=== PATIENT | male | born 1960 | race Caucasian/White ===

== ENCOUNTER 2020-12-25 12:16 | Emergency (ER) | payer MEDICAID ==
[~2020-12-25] VITALS: Ht 177.8 cm; Wt 79.4 kg
--- NOTE | 2020-12-25 12:54 | NUR ---
THE PATIENT BIBS FOR REQUESTING MEDICAL CLEARANCE FOR VOLUNTARY PSYCH ADMIT TO [facility]. DENIES SI/HI. THE PATIENT IS ALERT AND ORIENTED X2. DENIES PAIN. IN ROOM AIR AND DENIES SOB. RESPIRATION REGULAR AND UNLABORED. WILL CONTINUE TO MONITOR THE PATIENT.
[2020-12-25 12:57] LABS: BASOPHILS # (AUTO) 0.1 K/uL (0.0-0.2); BASOPHILS % (AUTO) 0.6 % (0.0-2.0); HEMATOCRIT 40 % (39-51); HEMOGLOBIN 13.4 g/dL (13.5-17.5); LYMPHOCYTES # (AUTO) 3.1 K/uL (0.8-4.8); LYMPHOCYTES % (AUTO) 20.8 % (20.0-44.0); MEAN CORPUSCULAR HGB CONC 33 g/dl (31.0-36.0); MEAN CORPUSCULAR VOLUME 90 fL (80-96); MONOCYTES # (AUTO) 1.9 K/uL (0.1-1.30); MONOCYTES % (AUTO) 12.9 % (2.0-12.0); NEUTROPHILS # (AUTO) 9.7 K/uL (1.8-8.9); NEUTROPHILS % (AUTO) 64.7 % (43.0-81.0); PLATELET COUNT (AUTO) 413 K/uL (150-450); RED BLOOD CELL COUNT(AUTO) 4.48 MIL/uL (4.5-6.0)
[2020-12-25 13:05] LABS: CALCIUM, SERUM 8.9 mg/dL (8.5-10.1); CARBON DIOXIDE 23 mmol/L (21-32); CHLORIDE 100 mmol/L (98-107); CREATININE 1.6 mg/dL (0.6-1.3); GLUCOSE 83 mg/dL (74-106); SODIUM SERUM 135 mmol/L (136-145); UREA NITROGEN, BLOOD 48 mg/dL (7-18)
[2020-12-25 13:10] LABS: ALANINE AMINOTRANSFERASE 96 U/L (12-78); ALKALINE PHOSPHATASE 74 U/L (46-116); ASPARTATE AMINOTRANSFERASE 59 U/L (15-37); BILIRUBIN,DIRECT 0.2 mg/dL (0.0-0.2); BILIRUBIN,TOTAL 0.7 mg/dL (0.2-1.0); TOTAL PROTEIN, SERUM 8.8 g/dL (6.4-8.2)
[2020-12-25 13:12] LABS: ACETAMINOPHEN 0 ug/ml (10-30); ALCOHOL, BLOOD < 3 mg/dL (0-0)
--- NOTE | 2020-12-25 13:34 | NUR ---
URINE COLLECTED AND SENT TO THE LAB
[2020-12-25 13:45] LABS: BILIRUBIN,URINE Negative (NEGATIVE); COLOR,URINE YELLOW (YELLOW); LEUKOCYTE ESTERASE ,URINE Negative (NEGATIVE); NITRITE, URINE Negative (NEGATIVE); PH,URINE 5.5 (5.0-8.0); PROTEIN,URINE Trace mg/dl (NEGATIVE); UGLUCOSE Negative (NEGATIVE); UROBILINOGEN,URINE 0.2 EU/dL (0.2)
[2020-12-25 13:46] LABS: BACTERIA,URINE Rare /HPF (None Seen); RBC,URINE 0-2 /HPF (0-2); SQUAMOUS EPITHELIAL CELL,UR Rare /HPF (None Seen); WBC,URINE 0-2 /HPF (0-3)
--- NOTE | 2020-12-25 17:00 | NUR ---
THE PATIENT HAVING DINNER. TOLERATES PROVIDED FOOD WELL.
--- NOTE | 2020-12-25 19:30 | NUR ---
RECIEVED REPORT FOR NICK, PATIENT IN BED RESTING, VSS, IN NO ACUTE DISTRESS. WILL CONTINUE TO MONITOR
--- NOTE | 2020-12-25 20:06 | NUR ---
CALLED FIORELLA AT [facility] TO INSURE SHE HAS REC'S THE INQUIRES
--- NOTE | 2020-12-25 21:02 | NUR ---
PT GOT ACCEPTED AT [facility] BY DR MILLER AT UNIT 2. TRANPORTATION RRANGED BY [facility] IN 75-90 MIN
[2020-12-25] MEDS ORDERED: LORAZEPAM 1 MG TABLET ONE (21:27)
[2020-12-25] MEDS ORDERED: LORAZEPAM 1 MG TABLET PO ONE (21:30)
[2020-12-25 22:16] VITALS: BP 134/74
--- NOTE | 2020-12-25 22:47 | NUR ---
[facility] AT BED SIDE TO SOCIAL SECURITY BENEFITS INTERVIEWER THE PT
--- NOTE | 2020-12-25 22:48 | NUR ---
gave report to JAYLIN Handy at [facility].
--- NOTE | 2020-12-25 22:48 | NUR ---
gave report to ems for beltran
== END 2020-12-25 22:48 ==
LOC: ER 17:08
DX: F32.9 Major depressive disorder, single episode, unspecified (principal); Z98.1 Arthrodesis status; E11.9 Type 2 diabetes mellitus without complications; Z88.6 Allergy status to analgesic agent; M19.90 Unspecified osteoarthritis, unspecified site; R45.851 Suicidal ideations; D72.829 Elevated white blood cell count, unspecified; R82.5 Elevated urine levels of drugs, medicaments and biological substances; Z20.822 Contact with and (suspected) exposure to COVID-19
CPT/HCPCS: 36415; 80048; 80076; 80143; 80307; 80320; 81001; 85025; 87426; 99285; C9803; G0480

== ENCOUNTER 2021-02-19 14:46 | Emergency (ER) | payer MEDICAID ==
[~2021-02-19] VITALS: Ht 180.3 cm; Wt 77.1 kg
[2021-02-19 15:09] VITALS: BP 125/81
--- NOTE | 2021-02-19 15:36 | NUR ---
COVID SWAB SENT TO LAB.
[2021-02-19 16:01] LABS: BASOPHILS # (AUTO) 0.1 K/uL (0.0-0.2); BASOPHILS % (AUTO) 0.6 % (0.0-2.0); EOSINOPHILS % (AUTO) 1.9 % (0.0-6.0); HEMATOCRIT 47 % (39-51); HEMOGLOBIN 15.6 g/dL (13.5-17.5); LYMPHOCYTES % (AUTO) 19.4 % (20.0-44.0); MEAN CORPUSCULAR HGB CONC 33 g/dl (31.0-36.0); MEAN CORPUSCULAR VOLUME 90 fL (80-96); MONOCYTES # (AUTO) 1.2 K/uL (0.1-1.30); MONOCYTES % (AUTO) 11.4 % (2.0-12.0); NEUTROPHILS # (AUTO) 6.9 K/uL (1.8-8.9); NEUTROPHILS % (AUTO) 66.7 % (43.0-81.0); PLATELET COUNT (AUTO) 136 K/uL (150-450); RED BLOOD CELL COUNT(AUTO) 5.25 MIL/uL (4.5-6.0); WHITE BLOOD COUNT (AUTO) 10.4 K/uL (4.3-11.0)
[2021-02-19 16:21] LABS: ALANINE AMINOTRANSFERASE 178 U/L (12-78); ALBUMIN 3.7 g/dL (3.4-5.0); ALCOHOL, BLOOD 51 mg/dL (0-0); ALKALINE PHOSPHATASE 82 U/L (46-116); ASPARTATE AMINOTRANSFERASE 113 U/L (15-37); BILIRUBIN,DIRECT 0.1 mg/dL (0.0-0.2); BILIRUBIN,TOTAL 0.2 mg/dL (0.2-1.0); CALCIUM, SERUM 9.4 mg/dL (8.5-10.1); CARBON DIOXIDE 22 mmol/L (21-32); CHLORIDE 102 mmol/L (98-107); CREATININE 0.7 mg/dL (0.6-1.3); GLUCOSE 105 mg/dL (74-106); POTASSIUM 4.3 mmol/L (3.5-5.1); SODIUM SERUM 138 mmol/L (136-145); TOTAL PROTEIN, SERUM 8.7 g/dL (6.4-8.2); UREA NITROGEN, BLOOD 18 mg/dL (7-18)
[2021-02-19 16:22] LABS: ACETAMINOPHEN < 2 ug/ml (10-30)
[2021-02-19] MEDS ORDERED: LORAZEPAM 1 MG TABLET PO ONE (16:30)
[2021-02-19] MEDS ORDERED: LORAZEPAM 1 MG TABLET ONE (16:39)
--- NOTE | 2021-02-19 16:40 | NUR ---
CLINICALS FAXED TO [facility]TAKE AWAITING COVID RESULT.
[2021-02-19 17:36] LABS: BILIRUBIN,URINE SMALL (NEGATIVE); COLOR,URINE YELLOW (YELLOW); LEUKOCYTE ESTERASE ,URINE Negative (NEGATIVE); NITRITE, URINE Negative (NEGATIVE); PH,URINE 5.5 (5.0-8.0); PROTEIN,URINE Negative (NEGATIVE); UGLUCOSE Negative (NEGATIVE); UROBILINOGEN,URINE 0.2 EU/dL (0.2)
--- NOTE | 2021-02-19 18:55 | NUR ---
RE FAXED CLINICALS WITH COVID RESULT TO [facility] INTAKE.
--- NOTE | 2021-02-19 19:10 | NUR ---
CALLED INTAKE TO CONFIRM THEY HAVE RECEIVED CLINICALS.
--- NOTE | 2021-02-19 21:10 | NUR ---
TRANSFER INFORMATION: PT ACCEPTED [facility] ACCEPTING MD MACHADO PT WILL GO TO UNIT 1 PHONE NUMBER FOR REPORT
--- NOTE | 2021-02-19 22:17 | NUR ---
PT REQUESTING TO LEAVE AND STATES "I'M NO LONGER SUICIDAL AND I'D JUST RATHER LEAVE." PT DENIES SI/HI. PT REFUSE TO WAIT TO SPEAK TO ER MD, REFUSE TO SIGN AMA. PT LEFT AMBULATORY WITH STEADY GAIT NOTED.
== END 2021-02-19 22:21 | disposition left against medical advice (07) ==
LOC: ER 14:48
DX: F32.9 Major depressive disorder, single episode, unspecified (principal); Z20.822 Contact with and (suspected) exposure to COVID-19; E11.9 Type 2 diabetes mellitus without complications; F90.9 Attention-deficit hyperactivity disorder, unspecified type; F41.9 Anxiety disorder, unspecified; M19.90 Unspecified osteoarthritis, unspecified site; Z98.1 Arthrodesis status; Z88.6 Allergy status to analgesic agent; F17.200 Nicotine dependence, unspecified, uncomplicated
CPT/HCPCS: 36415; 80048; 80076; 80143; 80307; 80320; 81003; 85025; 87426; 99283; C9803; G0480

== ENCOUNTER 2021-04-06 08:27 | Emergency (ER) | payer BC, MEDICAID ==
[~2021-04-06] VITALS: Ht 180.3 cm; Wt 77.1 kg
--- NOTE | 2021-04-06 08:44 | NUR ---
THE PATIENT BIS FOR HAVING SI WITH A PLAN TO RUN INTO TRAFFIC. THE PATIENT IS ALERT AND ORIENTED X4. DENIES HAVING HI. IN ROOM AIR AND DENIES SOB. RESPIRATION REGULAR AND UNLABORED. DENIES PAIN. THE PATIENT STATES BEING HOMELESS. WILL CONTINUE TO MONITOR THE PATIENT.
[2021-04-06] MEDS ORDERED: LORAZEPAM 1 MG TABLET PO ONE (09:00)
[2021-04-06] MEDS ORDERED: LORAZEPAM 1 MG TABLET ONE (09:02)
[2021-04-06 09:06] LABS: BASOPHILS # (AUTO) 0.1 K/uL (0.0-0.2); BASOPHILS % (AUTO) 0.5 % (0.0-2.0); HEMATOCRIT 42 % (39-51); HEMOGLOBIN 13.8 g/dL (13.5-17.5); LYMPHOCYTES # (AUTO) 1.8 K/uL (0.8-4.8); LYMPHOCYTES % (AUTO) 15.2 % (20.0-44.0); MEAN CORPUSCULAR HGB CONC 33 g/dl (31.0-36.0); MEAN CORPUSCULAR VOLUME 90 fL (80-96); MONOCYTES # (AUTO) 1.4 K/uL (0.1-1.30); MONOCYTES % (AUTO) 11.8 % (2.0-12.0); NEUTROPHILS # (AUTO) 8.4 K/uL (1.8-8.9); NEUTROPHILS % (AUTO) 69.5 % (43.0-81.0); PLATELET COUNT (AUTO) 303 K/uL (150-450); RED BLOOD CELL COUNT(AUTO) 4.62 MIL/uL (4.5-6.0); WHITE BLOOD COUNT (AUTO) 12.1 K/uL (4.3-11.0)
[2021-04-06 09:15] LABS: BILIRUBIN,URINE NEGATIVE (NEGATIVE); COLOR,URINE YELLOW (YELLOW); LEUKOCYTE ESTERASE ,URINE NEGATIVE (NEGATIVE); NITRITE, URINE NEGATIVE (NEGATIVE); PROTEIN,URINE NEGATIVE (NEGATIVE); UGLUCOSE NEGATIVE (NEGATIVE); UROBILINOGEN,URINE 0.2 EU/dL (0.2)
--- NOTE | 2021-04-06 09:26 | NUR ---
COVID SWAB DONE AND SENT TO THE LAB
[2021-04-06 09:37] LABS: ALANINE AMINOTRANSFERASE 120 U/L (12-78); ALBUMIN 3.6 g/dL (3.4-5.0); ALCOHOL, BLOOD < 3 mg/dL (0-0); ALKALINE PHOSPHATASE 96 U/L (46-116); ASPARTATE AMINOTRANSFERASE 114 U/L (15-37); BILIRUBIN,DIRECT 0.2 mg/dL (0.0-0.2); BILIRUBIN,TOTAL 0.6 mg/dL (0.2-1.0); CALCIUM, SERUM 8.7 mg/dL (8.5-10.1); CARBON DIOXIDE 32 mmol/L (21-32); CHLORIDE 101 mmol/L (98-107); CREATININE 0.9 mg/dL (0.6-1.3); GLUCOSE 103 mg/dL (74-106); POTASSIUM 4.1 mmol/L (3.5-5.1); SODIUM SERUM 137 mmol/L (136-145); UREA NITROGEN, BLOOD 38 mg/dL (7-18)
[2021-04-06 09:49] LABS: BACTERIA,URINE None seen /HPF (None Seen); RBC,URINE NONE SEEN /HPF (0-2); SQUAMOUS EPITHELIAL CELL,UR None Seen /HPF (None Seen); WBC,URINE NONE SEEN /HPF (0-3)
[2021-04-06 09:55] LABS: ACETAMINOPHEN 0 ug/ml (10-30)
--- NOTE | 2021-04-06 10:11 | NUR ---
THE PATIENT IS SERVED WITH BREAKFAST. TOLERATES PROVIDED FOOD WELL.
--- NOTE | 2021-04-06 10:41 | NUR ---
FAXED CLINICALS TO [facility]TA[facility]
--- NOTE | 2021-04-06 12:27 | NUR ---
PER [facility] THE BOTTOM TURNING LATHE TENDER IS STILL REVIEWING THE PAPERS.
--- NOTE | 2021-04-06 13:35 | NUR ---
CALLED [facility] PT ACCEPTED TO [facility] UNDER DR. MCKEON CALL [phone] FOR REPORT.
--- NOTE | 2021-04-06 13:37 | NUR ---
ACCEPTED TO [facility] UNDER [address] MCKEON.
--- NOTE | 2021-04-06 13:38 | NUR ---
CALLED [facility] ETA 45 MINS PER MYA.
--- NOTE | 2021-04-06 13:47 | NUR ---
REPORT GIVEN TO NURSE DENZEL FROM [facility]
--- NOTE | 2021-04-06 14:11 | NUR ---
REPORT GIVEN TO AMBULANCE STAFF
--- NOTE | 2021-04-06 14:17 | NUR ---
Patient discharged to psych facility in stable condition. Written and verbal after care instructions given. Patient verbalizes understanding of instruction.
[2021-04-06 14:18] VITALS: BP 126/84
== END 2021-04-06 14:18 ==
LOC: ER 08:32
DX: R45.851 Suicidal ideations (principal); E11.9 Type 2 diabetes mellitus without complications; Z98.1 Arthrodesis status; Z88.6 Allergy status to analgesic agent; Z20.822 Contact with and (suspected) exposure to COVID-19
CPT/HCPCS: 36415; 80048; 80076; 80143; 80307; 80320; 81001; 85025; 87426; 99285; C9803; G0480

== ENCOUNTER 2021-05-16 18:00 | Emergency (ER) | payer MEDICAID ==
[~2021-05-16] VITALS: Ht 177.8 cm; Wt 77.1 kg
[2021-05-16 21:13] LABS: BASOPHILS # (AUTO) 0.1 K/uL (0.0-0.2); EOSINOPHILS % (AUTO) 1.9 % (0.0-6.0); HEMATOCRIT 44 % (39-51); HEMOGLOBIN 14.5 g/dL (13.5-17.5); LYMPHOCYTES # (AUTO) 2.2 K/uL (0.8-4.8); LYMPHOCYTES % (AUTO) 21.4 % (20.0-44.0); MEAN CORPUSCULAR HGB CONC 33 g/dl (31.0-36.0); MEAN CORPUSCULAR VOLUME 91 fL (80-96); MONOCYTES # (AUTO) 1.4 K/uL (0.1-1.30); MONOCYTES % (AUTO) 13.4 % (2.0-12.0); NEUTROPHILS # (AUTO) 6.5 K/uL (1.8-8.9); NEUTROPHILS % (AUTO) 62.3 % (43.0-81.0); PLATELET COUNT (AUTO) 339 K/uL (150-450); RED BLOOD CELL COUNT(AUTO) 4.82 MIL/uL (4.5-6.0); WHITE BLOOD COUNT (AUTO) 10.4 K/uL (4.3-11.0)
[2021-05-16 21:27] LABS: CALCIUM, SERUM 8.8 mg/dL (8.5-10.1); CARBON DIOXIDE 20 mmol/L (21-32); CHLORIDE 104 mmol/L (98-107); CREATININE 0.9 mg/dL (0.6-1.3); GLUCOSE 88 mg/dL (74-106); SODIUM SERUM 139 mmol/L (136-145); UREA NITROGEN, BLOOD 25 mg/dL (7-18)
[2021-05-16 21:35] LABS: ACETAMINOPHEN < 10 ug/ml (10-30); ALANINE AMINOTRANSFERASE 251 U/L (12-78); ALBUMIN 3.9 g/dL (3.4-5.0); ALCOHOL, BLOOD < 3 mg/dL (0-0); ALKALINE PHOSPHATASE 76 U/L (46-116); ASPARTATE AMINOTRANSFERASE 153 U/L (15-37); BILIRUBIN,DIRECT 0.2 mg/dL (0.0-0.2); BILIRUBIN,TOTAL 0.8 mg/dL (0.2-1.0); TOTAL PROTEIN, SERUM 8.5 g/dL (6.4-8.2)
[2021-05-16 22:59] LABS: BILIRUBIN,URINE SMALL (NEGATIVE); COLOR,URINE YELLOW (YELLOW); LEUKOCYTE ESTERASE ,URINE NEGATIVE (NEGATIVE); NITRITE, URINE NEGATIVE (NEGATIVE); PH,URINE 5.5 (5.0-8.0); PROTEIN,URINE TRACE mg/dl (NEGATIVE); UGLUCOSE NEGATIVE (NEGATIVE); UROBILINOGEN,URINE 0.2 EU/dL (0.2)
[2021-05-16] MEDS ORDERED: IV NS 0.9% 1,000 ML BAG IV ONE (23:00)
[2021-05-17] MEDS ORDERED: diphenhydrAMINE HCL 50 MG/ML VIAL ONE (02:18)
[2021-05-17] MEDS ORDERED: LORAZEPAM INJ 2 MG/ML VIAL ONE (02:19)
[2021-05-17] MEDS ORDERED: OLANZAPINE 5 MG TABLET ONE (02:19)
[2021-05-17] MEDS ORDERED: diphenhydrAMINE HCL 50 MG/ML VIAL IV ONE (02:30)
[2021-05-17] MEDS ORDERED: LORAZEPAM INJ 2 MG/ML VIAL IV ONE (02:30)
[2021-05-17] MEDS ORDERED: OLANZAPINE 5 MG TABLET PO ONE (02:30)
[2021-05-17 04:28] LABS: BACTERIA,URINE None seen /HPF (None Seen); SQUAMOUS EPITHELIAL CELL,UR Few /HPF (None Seen); WBC,URINE 0-2 /HPF (0-3)
--- NOTE | 2021-05-17 06:04 | NUR ---
FOLLOW UP WITH INTA[facility] REGARDING TRANSPORT.
--- NOTE | 2021-05-17 07:01 | NUR ---
PT IN BED SLEEPING.
--- NOTE | 2021-05-17 08:23 | NUR ---
PT'S CLINICALS FAXED TO [facility].
--- NOTE | 2021-05-17 09:12 | NUR ---
[facility] CALLED AND WAS NOTIFIED THAT THE PT WAS ACCPETED. NUMBER FOR REPORT- [phone]
--- NOTE | 2021-05-17 09:15 | NUR ---
CALLED [facility] AND SET UP BLS TRANSPORT. ETA OF [phone]
[2021-05-17 10:00] VITALS: BP 118/77
--- NOTE | 2021-05-17 10:12 | NUR ---
patient picked up by [facility] going to [facility] in no distress.
== END 2021-05-17 10:12 ==
LOC: ER 18:01
DX: F32.A Depression, unspecified (principal); E86.0 Dehydration; Z20.822 Contact with and (suspected) exposure to COVID-19; R82.5 Elevated urine levels of drugs, medicaments and biological substances
CPT/HCPCS: 36415; 80048; 80076; 80143; 80307; 80320; 81001; 82010; 85025; 87426; 96361; 96374; 96375; 99285; C9803; J1200; J2060; G0480

== ENCOUNTER 2021-06-28 21:14 | Emergency (ER) | payer MEDICAID ==
[~2021-06-28] VITALS: Ht 180.3 cm; Wt 79.4 kg
--- NOTE | 2021-06-29 00:20 | NUR ---
PATIENT BIBSELF C/O +SI WITH PLAN, WANTING VOL PSYCH ADMIT. PATIENT IS A/O X 4, RR EVEN AND UNLABORED, NO SOB NOTED. PATIENT NOTED WITH STEADY GAIT. PATIENT BROUGHT TO ER BED, PLACED IN HOSPITAL GOWN, BELONGINGS PLACED IN LOCKER, SITTER AT BEDSIDE. PATIENT CONNECTED TO PATTERN SCRATCHER AND POX.
--- NOTE | 2021-06-29 00:36 | NUR ---
URINE COLLECTED AND SENT TO LAB
[2021-06-29 01:33] LABS: BASOPHILS # (AUTO) 0.1 K/uL (0.0-0.2); BASOPHILS % (AUTO) 1.1 % (0.0-2.0); EOSINOPHILS % (AUTO) 2.3 % (0.0-6.0); HEMATOCRIT 43 % (39-51); HEMOGLOBIN 14.5 g/dL (13.5-17.5); LYMPHOCYTES # (AUTO) 2.7 K/uL (0.8-4.8); LYMPHOCYTES % (AUTO) 30.7 % (20.0-44.0); MEAN CORPUSCULAR HGB CONC 34 g/dl (31.0-36.0); MEAN CORPUSCULAR VOLUME 92 fL (80-96); MONOCYTES # (AUTO) 1.3 K/uL (0.1-1.30); MONOCYTES % (AUTO) 14.4 % (2.0-12.0); NEUTROPHILS # (AUTO) 4.6 K/uL (1.8-8.9); NEUTROPHILS % (AUTO) 51.5 % (43.0-81.0); PLATELET COUNT (AUTO) 316 K/uL (150-450); WHITE BLOOD COUNT (AUTO) 8.9 K/uL (4.3-11.0)
[2021-06-29 01:59] LABS: ALANINE AMINOTRANSFERASE 328 U/L (12-78); ALBUMIN 3.4 g/dL (3.4-5.0); ALCOHOL, BLOOD 31 mg/dL (0-0); ALKALINE PHOSPHATASE 89 U/L (46-116); ASPARTATE AMINOTRANSFERASE 184 U/L (15-37); BILIRUBIN,DIRECT 0.1 mg/dL (0.0-0.2); BILIRUBIN,TOTAL 0.2 mg/dL (0.2-1.0); CALCIUM, SERUM 8.6 mg/dL (8.5-10.1); CARBON DIOXIDE 25 mmol/L (21-32); CHLORIDE 101 mmol/L (98-107); GLUCOSE 113 mg/dL (74-106); POTASSIUM 4.6 mmol/L (3.5-5.1); SODIUM SERUM 135 mmol/L (136-145); TOTAL PROTEIN, SERUM 8.2 g/dL (6.4-8.2); UREA NITROGEN, BLOOD 27 mg/dL (7-18)
[2021-06-29 02:07] LABS: ACETAMINOPHEN < 2 ug/ml (10-30)
[2021-06-29 05:00] LABS: BILIRUBIN,URINE NEGATIVE (NEGATIVE); COLOR,URINE YELLOW (YELLOW); LEUKOCYTE ESTERASE ,URINE NEGATIVE (NEGATIVE); NITRITE, URINE NEGATIVE (NEGATIVE); PH,URINE 6.5 (5.0-8.0); PROTEIN,URINE NEGATIVE (NEGATIVE); UGLUCOSE NEGATIVE (NEGATIVE); UROBILINOGEN,URINE 0.2 EU/dL (0.2)
[2021-06-29 08:10] VITALS: BP 125/71
--- NOTE | 2021-06-29 12:10 | NUR ---
Patient eloped from facility. ER MD notified.
== END 2021-06-29 12:11 | disposition left against medical advice (07) ==
LOC: ER 21:14
DX: R45.851 Suicidal ideations (principal); F31.9 Bipolar disorder, unspecified; Z20.822 Contact with and (suspected) exposure to COVID-19; Z59.01 Sheltered homelessness; F42.9 Obsessive-compulsive disorder, unspecified; I10 Essential (primary) hypertension; E11.9 Type 2 diabetes mellitus without complications; Z88.6 Allergy status to analgesic agent; Z53.29 Procedure and treatment not carried out because of patient's decision for other reasons
CPT/HCPCS: 36415; 80048; 80076; 80143; 80307; 80320; 81003; 85025; 87426; 99285; C9803; G0480

== ENCOUNTER 2021-11-19 15:33 | Emergency (ER) | payer SELFPAY ==
[~2021-11-19] VITALS: Ht 180.3 cm; Wt 78.9 kg
[2021-11-19 15:33] VITALS: BP 136/90
[2021-11-19] MEDS ORDERED: MORPHINE SULFATE INJ 2 MG/ML DISP.SYRIN IM ONE (19:00)
[2021-11-19] MEDS ORDERED: CYCL5TAB PO (19:05)
[2021-11-19] MEDS ORDERED: METH4TAB17 PO (19:05)
--- NOTE | 2021-11-19 19:53 | NUR ---
Patient eloped from facility. ER MD notified.
[2021-11-20] MEDS ORDERED: MORPHINE SULFATE INJ 4 MG/ML DISP.SYRIN ONE (01:29)
[2021-11-20] MEDS ORDERED: MORPHINE SULFATE INJ 2 MG/ML DISP.SYRIN IM ONE (01:30)
== END 2021-11-20 23:00 | disposition home or self-care (01) ==
LOC: ER 15:35
DX: M47.22 Other spondylosis with radiculopathy, cervical region (principal); I10 Essential (primary) hypertension; E11.9 Type 2 diabetes mellitus without complications; F31.9 Bipolar disorder, unspecified; F20.9 Schizophrenia, unspecified; F17.200 Nicotine dependence, unspecified, uncomplicated; Z88.8 Allergy status to other drugs, medicaments and biological substances; Z59.00 Homelessness unspecified
CPT/HCPCS: 93005; 96372; 99283; J2270

== ENCOUNTER 2022-02-12 15:26 | Emergency (ER) | payer MEDICAID ==
[~2022-02-12] VITALS: Ht 180.3 cm; Wt 79.4 kg
[~2022-02-12 15:26] MED LIST: CYCL5TAB PO; METH4TAB17 PO
--- NOTE | 2022-02-12 15:54 | NUR ---
[address], +SI "RUN IN FORNT OF TRAFFIC". ALSO C/O HEADACHE. TO ER BED 18, WANDED BY SECURITY. SUICIDE PRECAUTIONS APPIED. CHANGED TO HOSP GOWN, WARM BLANKET PROVIDED. BELONGINGS PLACED IN PATIENT LOCKER. WILL MONITOR CLOSELY.
[2022-02-12 16:33] LABS: BASOPHILS # (AUTO) 0.1 K/uL (0.0-0.2); BASOPHILS % (AUTO) 0.7 % (0.0-2.0); EOSINOPHILS % (AUTO) 1.8 % (0.0-6.0); HEMATOCRIT 45 % (39-51); HEMOGLOBIN 14.8 g/dL (13.5-17.5); LYMPHOCYTES # (AUTO) 1.7 K/uL (0.8-4.8); LYMPHOCYTES % (AUTO) 17.6 % (20.0-44.0); MEAN CORPUSCULAR HGB CONC 33 g/dl (31.0-36.0); MEAN CORPUSCULAR VOLUME 93 fL (80-96); MONOCYTES # (AUTO) 1.2 K/uL (0.1-1.30); MONOCYTES % (AUTO) 12.3 % (2.0-12.0); NEUTROPHILS # (AUTO) 6.6 K/uL (1.8-8.9); NEUTROPHILS % (AUTO) 67.6 % (43.0-81.0); PLATELET COUNT (AUTO) 194 K/uL (150-450); RED BLOOD CELL COUNT(AUTO) 4.88 MIL/uL (4.5-6.0); WHITE BLOOD COUNT (AUTO) 9.7 K/uL (4.3-11.0)
--- NOTE | 2022-02-12 16:38 | NUR ---
urine collected and sent to lab.
[2022-02-12 17:01] LABS: ALBUMIN 3.4 g/dL (3.4-5.0); BILIRUBIN,DIRECT 0.1 mg/dL (0.0-0.2); BILIRUBIN,TOTAL 0.2 mg/dL (0.2-1.0); CALCIUM, SERUM 8.9 mg/dL (8.5-10.1); CREATININE 1.3 mg/dL (0.6-1.3); POTASSIUM 4.1 mmol/L (3.5-5.1); TOTAL PROTEIN, SERUM 7.7 g/dL (6.4-8.2)
[2022-02-12 17:26] LABS: BILIRUBIN,URINE NEGATIVE (NEGATIVE); COLOR,URINE YELLOW (YELLOW); LEUKOCYTE ESTERASE ,URINE NEGATIVE (NEGATIVE); NITRITE, URINE NEGATIVE (NEGATIVE); PH,URINE 5.5 (5.0-8.0); PROTEIN,URINE NEGATIVE (NEGATIVE); UGLUCOSE NEGATIVE (NEGATIVE); UROBILINOGEN,URINE 0.2 EU/dL (0.2)
[2022-02-12 17:38] LABS: BACTERIA,URINE n /HPF (None Seen); RBC,URINE 0-2 /HPF (0-2); SQUAMOUS EPITHELIAL CELL,UR 0-2 /HPF (None Seen); WBC,URINE 0-2 /HPF (0-3)
[2022-02-12 17:39] LABS: CALCIUM OXALATE CRYSTALS,UR Moderate /HPF (None Seen)
[2022-02-12] MEDS ORDERED: ACETAMINOPHEN 325 MG TABLET ONE (18:41)
[2022-02-12] MEDS ORDERED: ACETAMINOPHEN 325 MG TABLET PO ONE (19:00)
--- NOTE | 2022-02-12 19:54 | NUR ---
FACESHEET AND CLINICALS FAXED TO [facility].
[2022-02-12] MEDS ORDERED: LORAZEPAM 1 MG TABLET ONE (19:56)
[2022-02-12] MEDS ORDERED: LORAZEPAM 1 MG TABLET PO ONE (20:00)
--- NOTE | 2022-02-12 21:14 | NUR ---
PT IS ACCEPTED AT [facility] UNDER THE CARE OF DR. STEWARD. CALL [phone] FOR REPORT.
--- NOTE | 2022-02-12 21:18 | NUR ---
[facility] CALLED FOR BLS PER MAYELA ETA 90 MIN - 2 HOURS
--- NOTE | 2022-02-12 22:32 | NUR ---
REPORT GIVEN TO JOSEFINA MOSQUEDA [facility]
--- NOTE | 2022-02-12 23:40 | NUR ---
REPORT GIVEN TO [facility] UNIT FOR TRANSFER TO [facility].
[2022-02-12 23:43] VITALS: BP 129/74
--- NOTE | 2022-02-12 23:45 | NUR ---
PT TRANSFERRED TO [facility]. ALL BELONGINGS WITH PT. VSS.
== END 2022-02-12 23:45 ==
LOC: ER 15:51
DX: R45.851 Suicidal ideations (principal); F10.10 Alcohol abuse, uncomplicated; Y90.1 Blood alcohol level of 20-39 mg/100 ml; F15.10 Other stimulant abuse, uncomplicated; R74.01 Elevation of levels of liver transaminase levels; Z59.00 Homelessness unspecified; Z20.822 Contact with and (suspected) exposure to COVID-19; Z89.431 Acquired absence of right foot; F31.9 Bipolar disorder, unspecified; F42.9 Obsessive-compulsive disorder, unspecified; I10 Essential (primary) hypertension; R44.0 Auditory hallucinations; E11.40 Type 2 diabetes mellitus with diabetic neuropathy, unspecified; M48.02 Spinal stenosis, cervical region; G89.29 Other chronic pain; M54.2 Cervicalgia; Z88.6 Allergy status to analgesic agent
CPT/HCPCS: 99285; 85025; 80048; 80076; 81001; 36415; 87426; 80143; 80320; 80307; C9803; G0480

== ENCOUNTER 2022-03-12 11:47 | Emergency (ER) | payer MEDICAID ==
[~2022-03-12] VITALS: Ht 177.8 cm; Wt 81.6 kg
[2022-03-12 13:02] LABS: BASOPHILS % (AUTO) 0.5 % (0.0-2.0); EOSINOPHILS % (AUTO) 2.5 % (0.0-6.0); HEMATOCRIT 47 % (39-51); HEMOGLOBIN 15.4 g/dL (13.5-17.5); LYMPHOCYTES # (AUTO) 1.5 K/uL (0.8-4.8); LYMPHOCYTES % (AUTO) 16.6 % (20.0-44.0); MEAN CORPUSCULAR HGB CONC 33 g/dl (31.0-36.0); MEAN CORPUSCULAR VOLUME 92 fL (80-96); MONOCYTES # (AUTO) 1.2 K/uL (0.1-1.30); MONOCYTES % (AUTO) 13.7 % (2.0-12.0); NEUTROPHILS # (AUTO) 5.8 K/uL (1.8-8.9); NEUTROPHILS % (AUTO) 66.7 % (43.0-81.0); PLATELET COUNT (AUTO) 237 K/uL (150-450); WHITE BLOOD COUNT (AUTO) 8.7 K/uL (4.3-11.0)
[2022-03-12 13:10] LABS: CALCIUM, SERUM 9.2 mg/dL (8.5-10.1); CARBON DIOXIDE 29 mmol/L (21-32); CHLORIDE 105 mmol/L (98-107); CREATININE 0.9 mg/dL (0.6-1.3); GLUCOSE 84 mg/dL (74-106); POTASSIUM 4.4 mmol/L (3.5-5.1); SODIUM SERUM 137 mmol/L (136-145); UREA NITROGEN, BLOOD 15 mg/dL (7-18)
[2022-03-12 13:15] LABS: ALANINE AMINOTRANSFERASE 497 U/L (12-78); ALBUMIN 3.5 g/dL (3.4-5.0); ALCOHOL, BLOOD 7 mg/dL (0-0); ALKALINE PHOSPHATASE 77 U/L (46-116); ASPARTATE AMINOTRANSFERASE 294 U/L (15-37); BILIRUBIN,DIRECT 0.1 mg/dL (0.0-0.2); BILIRUBIN,TOTAL 0.3 mg/dL (0.2-1.0); TOTAL PROTEIN, SERUM 7.9 g/dL (6.4-8.2)
[2022-03-12 13:16] LABS: ACETAMINOPHEN < 10 ug/ml (10-30)
[2022-03-12 20:00] LABS: BILIRUBIN,URINE NEGATIVE (NEGATIVE); COLOR,URINE YELLOW (YELLOW); LEUKOCYTE ESTERASE ,URINE NEGATIVE (NEGATIVE); NITRITE, URINE NEGATIVE (NEGATIVE); PH,URINE 5.5 (5.0-8.0); PROTEIN,URINE NEGATIVE (NEGATIVE); UGLUCOSE NEGATIVE (NEGATIVE); UROBILINOGEN,URINE 0.2 EU/dL (0.2)
[2022-03-12 20:49] LABS: BACTERIA,URINE None seen /HPF (None Seen); SQUAMOUS EPITHELIAL CELL,UR 0-2 /HPF (None Seen); WBC,URINE 0-2 /HPF (0-3)
[2022-03-13 07:45] VITALS: BP 132/70
== END 2022-03-13 08:04 ==
LOC: ER 11:49
DX: R45.851 Suicidal ideations (principal); E11.9 Type 2 diabetes mellitus without complications; F31.9 Bipolar disorder, unspecified; F42.9 Obsessive-compulsive disorder, unspecified; Z20.822 Contact with and (suspected) exposure to COVID-19; I10 Essential (primary) hypertension; Z59.00 Homelessness unspecified
CPT/HCPCS: 99285; 85025; 80048; 80076; 81001; 36415; 87426; 80143; 80320; 80307; C9803; G0480

== ENCOUNTER 2022-03-20 15:57 | Emergency (ER) | payer MEDICAID ==
[~2022-03-20] VITALS: Ht 182.9 cm; Wt 81.6 kg
--- NOTE | 2022-03-20 16:35 | NUR ---
PATIENT WANTED TO GO OUT OF HOSPITAL, PULLED OUT IV CANULA AND ELOPED.
[2022-03-20 16:38] VITALS: BP 104/70
== END 2022-03-20 16:41 | disposition left against medical advice (07) ==
LOC: ER 16:00
DX: F10.129 Alcohol abuse with intoxication, unspecified (principal); R10.84 Generalized abdominal pain; I10 Essential (primary) hypertension; E11.9 Type 2 diabetes mellitus without complications; F20.9 Schizophrenia, unspecified; F42.9 Obsessive-compulsive disorder, unspecified; F17.200 Nicotine dependence, unspecified, uncomplicated; Z88.6 Allergy status to analgesic agent; Z59.00 Homelessness unspecified; Z79.899 Other long term (current) drug therapy; Y90.9 Presence of alcohol in blood, level not specified

== ENCOUNTER 2022-03-21 12:00 | Emergency (ER) | payer MEDICAID ==
[~2022-03-21] VITALS: Ht 180.3 cm; Wt 81.6 kg
[2022-03-21 12:17] VITALS: BP 133/77
--- NOTE | 2022-03-21 12:24 | NUR ---
URINE COLLECTED AND SENT TO LAB
--- NOTE | 2022-03-21 13:05 | NUR ---
PATIENT ELOPED IN STABLE CONDITION
== END 2022-03-21 13:07 | disposition left against medical advice (07) ==
LOC: ER 12:03
DX: Z53.21 Procedure and treatment not carried out due to patient leaving prior to being seen by health care provider (principal)

== ENCOUNTER 2022-04-02 17:25 | Inpatient (IN) | payer MEDICAID ==
[~2022-04-02] VITALS: Ht 177.8 cm; Wt 80.3 kg
--- NOTE | 2022-04-02 18:34 | NUR ---
UNABLE TO PROVIDE URINE AT THIS TIME
--- NOTE | 2022-04-02 19:22 | NUR ---
[address]IB [address],C/O RIGHT UPPER EXTREMITY NUMBNESS X2 DAYS ADMITS TO ETOH. PT LETHARIGIC ON EXAM AND DOES NOT PROVIDE MEANINGFUL HX. BREATHING EVEN AND UNLABORED, ON MONITOR AND V/S WNL.
--- NOTE | 2022-04-02 19:23 | NUR ---
URINE COLLECTED AND SENT TO LAB
[2022-04-02 19:31] LABS: ALBUMIN 3.2 g/dL (3.4-5.0); BILIRUBIN,DIRECT 0.1 mg/dL (0.0-0.2); BILIRUBIN,TOTAL 0.2 mg/dL (0.2-1.0); CALCIUM, SERUM 8.6 mg/dL (8.5-10.1); CREATININE 0.7 mg/dL (0.6-1.3); POTASSIUM 3.3 mmol/L (3.5-5.1); TOTAL PROTEIN, SERUM 7.2 g/dL (6.4-8.2)
[2022-04-02 19:38] LABS: THYROID STIMULATING HORMONE 0.741 uIU/mL (0.358-3.74)
[2022-04-02 20:02] LABS: BASOPHILS # (AUTO) 0.1 K/uL (0.0-0.2); BASOPHILS % (AUTO) 0.6 % (0.0-2.0); HEMATOCRIT 42 % (39-51); HEMOGLOBIN 13.6 g/dL (13.5-17.5); LYMPHOCYTES # (AUTO) 2.4 K/uL (0.8-4.8); MEAN CORPUSCULAR HGB CONC 33 g/dl (31.0-36.0); MEAN CORPUSCULAR VOLUME 91 fL (80-96); MONOCYTES # (AUTO) 1.1 K/uL (0.1-1.30); MONOCYTES % (AUTO) 11.2 % (2.0-12.0); NEUTROPHILS # (AUTO) 5.7 K/uL (1.8-8.9); NEUTROPHILS % (AUTO) 59.2 % (43.0-81.0); PLATELET COUNT (AUTO) 259 K/uL (150-450); RED BLOOD CELL COUNT(AUTO) 4.56 MIL/uL (4.5-6.0); WHITE BLOOD COUNT (AUTO) 9.7 K/uL (4.3-11.0)
--- NOTE | 2022-04-02 20:15 | NUR ---
COVID ANTIGEN SWAB COLLECTED AND SENT TO LAB
--- NOTE | 2022-04-02 20:15 | NUR ---
COVID SWAB COLLECTED AND SENT TO LAB
[2022-04-02 21:11] LABS: BILIRUBIN,URINE NEGATIVE (NEGATIVE); COLOR,URINE YELLOW (YELLOW); LEUKOCYTE ESTERASE ,URINE NEGATIVE (NEGATIVE); NITRITE, URINE NEGATIVE (NEGATIVE); PROTEIN,URINE NEGATIVE (NEGATIVE); UGLUCOSE NEGATIVE (NEGATIVE)
[2022-04-02 21:24] LABS: BACTERIA,URINE None seen /HPF (None Seen); RBC,URINE 0-2 /HPF (0-2); SQUAMOUS EPITHELIAL CELL,UR 0-2 /HPF (None Seen); WBC,URINE 0-2 /HPF (0-3)
--- NOTE | 2022-04-02 21:38 | NUR ---
NOTIFIED MYRIAM RN [employer]P [employer] PT HAS ORDER FOR MIDLINE
[2022-04-02] MEDS ORDERED: hydrALAZINE HCL IV 20 MG VIAL IV PRN (22:00)
[2022-04-02] MEDS ORDERED: SIMVASTATIN 40 MG TABLET PO SCH (22:00)
[2022-04-02] MEDS ORDERED: ASPIRIN 81 MG TAB.CHEW PO ONE (22:30)
[2022-04-02] MEDS ORDERED: SIMVASTATIN 20 MG TABLET ONE (22:58)
[2022-04-02] MEDS ORDERED: ENOXAPARIN SODIUM 40 MG/0.4 ML DISP.SYRIN SQ ONE (22:58)
[2022-04-02] MEDS: ENOXAPARIN SODIUM 40 MG/0.4 ML DISP.SYRIN SQ SCH (23:00)
[2022-04-02] MEDS ORDERED: ASPIRIN 81 MG TAB.CHEW ONE (23:03)
--- NOTE | 2022-04-03 02:39 | NUR ---
PT SLEEPING COMOFORTABLY V/S REMAIN WNL BRETHING EVEN AND UNLABORED.
[2022-04-03 05:20] LABS: BASOPHILS % (AUTO) 0.4 % (0.0-2.0); EOSINOPHILS % (AUTO) 5.2 % (0.0-6.0); HEMATOCRIT 44 % (39-51); HEMOGLOBIN 14.2 g/dL (13.5-17.5); MEAN CORPUSCULAR HGB CONC 33 g/dl (31.0-36.0); MEAN CORPUSCULAR VOLUME 91 fL (80-96); MONOCYTES # (AUTO) 0.9 K/uL (0.1-1.30); NEUTROPHILS # (AUTO) 3.4 K/uL (1.8-8.9); NEUTROPHILS % (AUTO) 51.4 % (43.0-81.0); PLATELET COUNT (AUTO) 231 K/uL (150-450); WHITE BLOOD COUNT (AUTO) 6.6 K/uL (4.3-11.0)
[2022-04-03 06:01] LABS: CALCIUM, SERUM 8.2 mg/dL (8.5-10.1); CREATININE 0.7 mg/dL (0.6-1.3); POTASSIUM 4.1 mmol/L (3.5-5.1)
--- NOTE | 2022-04-03 08:00 | NUR ---
PT RESTING COMFORTABLY IN BED, EASY TO AROUSE.
[2022-04-03] MEDS ORDERED: PANTOPRAZOLE 40 MG TABLET.DR PO ONE (08:03)
[2022-04-03] MEDS ORDERED: ASPIRIN EC 325 MG TABLET.DR PO ONE (08:03)
[2022-04-03] MEDS ORDERED: THIAMINE HCL 100 MG TABLET ONE (08:03)
[2022-04-03] MEDS: PANTOPRAZOLE 40 MG TABLET.DR PO SCH (08:06)
[2022-04-03] MEDS: THIAMINE HCL 100 MG TABLET PO SCH (08:06)
[2022-04-03] MEDS ORDERED: ASPIRIN EC 325 MG TABLET.DR PO SCH (09:00)
--- NOTE | 2022-04-03 09:56 | NUR ---
PT ASSESSED PT AND STATED THAT HE IS ABLE TO AMBULATE SHORT DISTANCE, HAS A LITTLE UNSTEADY GATE, AND MOST LIKELY NEEDS A WALKER. STATED THAT THEY WILL REASSESS ON THE FLOOR.
--- NOTE | 2022-04-03 11:24 | NUR ---
GOT BED 308-2
--- NOTE | 2022-04-03 11:37 | NUR ---
REPORT GIVEN TO WALKER FOR NICK
--- NOTE | 2022-04-03 13:30 | NUR ---
RN Receiving Report. Received patient from ER AOx4, ambulatory with chief complain of Right-sided weakness. Patient shows no signs of distress or chest discomfort. With IV line inserted at right upper arm. Initial vital signs taken and recorded. Advised to use call light when needs assistance. All safety precautions taken with patient, call light and table within reach, bed at lowest position. Will continue to monitor throughout shift and provide care as needed.
[2022-04-03 14:25] VITALS: BP 130/69
[2022-04-03] MEDS: NICOTINE PATCH (21MG) 21 MG PATCH.TD24 TD SCH (17:58)
[2022-04-03] MEDS: LORAZEPAM 1 MG TABLET PO PRN (18:28)
--- NOTE | 2022-04-03 18:28 | NUR ---
RN NOTE PATIENT ASKED FOR MEDICATION FOR ANXIETY. DOCTOR ROBISON ORDERED ATIVAN 0.5MG Q6H FOR ANXIETY. ATIVAN 0.5MG PO GIVEN PRN FOR ANXIETY.
--- NOTE | 2022-04-03 18:54 | NUR ---
PURCHASING ADMINISTRATIVE ASSISTANT CLOSING NOTES PATIENT ON BED AWAKE AND A/O X4. ON ROOM AIR TOLERATING WELL. NO SOB NOTED. NOT IN DISTRESS. WITH IV ACCESS AT RIGHT UPPER ARM MIDLINE SALINE LOCKED, PATENT AND INTACT. ON TELE MONITOR CURRENTLY READING SINUS RHYTHM AT 70BPM. DUE MEDS GIVEN. SAFETY MEASURES IN PLACED. CALL LIGHT WITHIN REACH. BED ON LOWEST LOCKED POSITION, SIDE RAILS UP X2. WILL ENDORSE TO NEXT SHIFT FOR NICK.
--- NOTE | 2022-04-03 19:30 | NUR ---
DIRECTOR MATERNAL CHILD OPENING NOTE RECEIVED PATIENT IN BED; AWAKE, ALERT AND ORIENTED X 4. BREATHING EVEN AND NONLABORED. ON ROOM AIR; TOLERATING WELL. NOT IN ANY FORM OF RESPIRATORY DISTRESS. NO C/O PAIN OR DISCOMFORT AT THIS TIME. ON TELEMETRY MONITORING WITH CURRENT READING OF SR HR-72BPM. WITH MIDLINE @ RIGHT UPPER ARM 18g: PATENT, INTACT AND SALINE LOCKED. ABLE TO MAKE NEEDS KNOWN. SAFETY MEASURES IMPLEMENTED: CALL LIGHT AND TABLE WITHIN REACH, SIDE RAILS UP X 2, BED IN LOWEST LOCKED POSITION. WILL CONTINUE PLAN OF CARE.
[2022-04-03 20:00] VITALS: BP 148/62
[2022-04-03] MEDS: ENOXAPARIN SODIUM 40 MG/0.4 ML DISP.SYRIN SQ SCH (21:58)
[2022-04-03] MEDS: SIMVASTATIN 20 MG TABLET PO SCH (22:00)
--- NOTE | 2022-04-04 06:40 | NUR ---
INFORMATION ASSURANCE CLOSING NOTE PATIENT IN BED; AWAKE, A/O X 4. STABLE ON ROOM AIR. RESPIRATION EQUAL AND UNLABORED. IN NO ACUTE DISTRESS. DENIES ANY PAIN OR DISCOMFORT AT THIS TIME. ON TELE MONITOR WITH CURRENT READING OF SR HR-70 BPM. WITH RIGHT UPPER ARM MIDLINE 18g: PATENT, INTACT AND SALINE LOCKED. ALL DUE MEDS GIVEN ORDERED. ALL NEEDS ATTENDED. SAFETY MEASURES MAINTAINED: CALL LIGHT AND TABLE WITHIN REACH, SIDE RAILS UP X 2, BED IN LOWEST LOCKED POSITION. ENDORSED TO ED MOSQUEDA FOR NICK.
--- NOTE | 2022-04-04 07:00 | NUR ---
HUMAN RESOURCES COMPLIANCE MANAGER OPENING NOTE PATIENT LAYING IN BED, A/O X 4, ABLE TO MAKE NEEDS KNOWN, TOLERATING WELL ON ROOM AIR WITH NO S/S RESPIRATORY DISTRESS. NO COMPLAINTS OF PAIN OR DISCOMFORT AT THIS TIME. TELE MONITOR IN PLACE READING NSR 69. LAURA MIDLINE # 18 G CLEAN, INTACT, AND FLUSHING WELL. SAFETY MEASURES IN PLACE: BED IN LOWEST LOCKED POSITION, SIDE RAILS UP X 2, CALL LIGHT WITHIN REACH. WILL CONTINUE TO MONITOR.
[2022-04-04] MEDS: PANTOPRAZOLE 40 MG TABLET.DR PO SCH (07:49)
[2022-04-04 08:00] VITALS: BP 145/80
[2022-04-04] MEDS: THIAMINE HCL 100 MG TABLET PO SCH (08:29)
[2022-04-04] MEDS: ASPIRIN EC 81 MG TABLET.DR PO SCH (08:29)
[2022-04-04] MEDS: NICOTINE PATCH (21MG) 21 MG PATCH.TD24 TD SCH (08:29)
[2022-04-04] MEDS ORDERED: DIAZEPAM 5 MG TABLET PO ONE (10:00)
[2022-04-04] MEDS: LORAZEPAM 1 MG TABLET PO PRN ×2 (11:07→17:43)
[2022-04-04] MEDS: CHLORDIAZEPOXIDE HCL 25 MG CAPSULE PO SCH ×2 (12:26→20:13)
[2022-04-04] MEDS: IV NS 0.9% 1,000 ML IV SCH (12:27)
[2022-04-04] MEDS: DIAZEPAM 5 MG TABLET PO PRN (14:21)
[2022-04-04] MEDS: HYDROCODONE/APAP 5/325MG TABLET PO PRN (19:05)
--- NOTE | 2022-04-04 19:10 | NUR ---
MS RN NOTE PATIENT COMPLAINT OF SEVERE NECK PAIN AND REQUESTING PAIN MEDICATION. PRN NORCO 5/325 MG PO ADMINISTERED ORDERED. WILL CONTINUE TO MONITOR FOR S/S PAIN.
--- NOTE | 2022-04-04 19:19 | NUR ---
VISION TEACHER CLOSING NOTE PATIENT LAYING IN BED, A/O X 4, ABLE TO MAKE NEEDS KNOWN, TOLERATING WELL ON ROOM AIR WITH NO S/S RESPIRATORY DISTRESS. LAURA # 18 G MIDLINE CLEAN, INTACT, AND INFUSING NS @ 75 ML/HR. SAFETY MEASURES IN PLACE: BED IN LOWEST LOCKED POSITION, SIDE RAILS UP X 2, CALL LIGHT WITHIN REACH. ALL NEEDS MET. WILL ENDORSE TO PHOTOTYPESETTER OPERATOR FOR NICK.
--- NOTE | 2022-04-04 19:30 | NUR ---
METAL BUGGY OPERATOR OPENING NOTES RECEIVED PATIENT LYING IN BED AWAKE. A/O X 4, ANXIETY NOTED. BREATHING EVEN AND NON-LABORED ON ROOM AIR. WILL REASSESS PAIN IN 30 MINUTES. ON TELE MONITOR READING SINUS RHYTHM AT 75 BPM. HAS RIGHT UPPER ARM MIDLINE #18G WITH NS RUNNING AT 75 ML/HR. NO S/S OF INFILTRATION NOTED. SAFETY PRECAUTIONS IN PLACE: BED LOCKED AND IN LOWEST POSITION, SIDE RAILS UP X2 AND PADDED FOR SEIZURE PROTOCOL, CALL LIGHT WITHIN EASY REACH. WILL CONTINUE POC.
[2022-04-04 20:00] VITALS: BP 128/74
[2022-04-04] MEDS: ENOXAPARIN SODIUM 40 MG/0.4 ML DISP.SYRIN SQ SCH (20:21)
[2022-04-04] MEDS: SIMVASTATIN 20 MG TABLET PO SCH (21:17)
[2022-04-05] VITALS: BP 127/73
[2022-04-05] MEDS: IV NS 0.9% 1,000 ML IV SCH (01:36)
[2022-04-05] MEDS: HYDROCODONE/APAP 5/325MG TABLET PO PRN ×2 (02:31→13:35)
--- NOTE | 2022-04-05 02:32 | NUR ---
METABOLIC SPECIALIST NOTES PATIENT C/O CHRONIC NECK PAIN 04/06. ADMINISTERED PRN NORCO 5-325, TOLERATED WELL.
[2022-04-05 04:00] VITALS: BP 126/80
[2022-04-05] MEDS: CHLORDIAZEPOXIDE HCL 25 MG CAPSULE PO SCH ×2 (04:59→12:10)
--- NOTE | 2022-04-05 06:35 | NUR ---
RESPIRATORY TECHNICIAN CLOSING NOTES PATIENT LYING IN BED ASLEEP, EASY TO AROUSE. A/O X 4. NO SOB OR NOTED, TOLERATING ROOM AIR WELL. DENIES PAIN AT THIS TIME. NO ACUTE DISTRESS NOTED. AFEBRILE. AMBULATORY WITH STEADY GAIT. ON TELE MONITOR READING SINUS RHYTHM AT 73 BPM. HAS RIGHT UPPER ARM MIDLINE #18G WITH NS RUNNING AT 75 ML/HR. INTACT, PATENT AND FLUSHING. ALL DUE MEDS GIVEN AND NEEDS ATTENDED. SAFETY PRECAUTIONS MAINTAINED. WILL ENDORSE TO NEXT SHIFT FOR NICK.
[2022-04-05] MEDS: PANTOPRAZOLE 40 MG TABLET.DR PO SCH (07:48)
--- NOTE | 2022-04-05 08:12 | NUR ---
RN OPENING NOTE- PATIENT SLEEPING. AWAKENS EASILY, . A/O X 4. NO SOB OR NOTED, TOLERATING ROOM AIR WELL. DENIES PAIN AT THIS TIME. NO ACUTE DISTRESS NOTED. AFEBRILE. AMBULATORY WITH STEADY GAIT. ON TELE MONITOR READING SINUS RHYTHM AT 68 BPM. HAS RIGHT UPPER ARM MIDLINE #18G WITH NS RUNNING AT 75 ML/HR. INTACT, PATENT AND FLUSHING. SIDE RAILS UP, BED LOCKED, MONITOR / ASSIST
[2022-04-05] MEDS: ASPIRIN EC 81 MG TABLET.DR PO SCH (08:57)
[2022-04-05] MEDS: NICOTINE PATCH (21MG) 21 MG PATCH.TD24 TD SCH (08:57)
[2022-04-05] MEDS ORDERED: FOLIC ACID 1 MG TABLET PO SCH (09:00)
[2022-04-05] MEDS ORDERED: THIAMINE HCL 100 MG TABLET PO SCH (09:00)
[2022-04-05] MEDS: DIAZEPAM 5 MG TABLET PO PRN (09:50)
--- NOTE | 2022-04-05 09:53 | NUR ---
RN NOTE- WITHDRAWAL SYMPTOMS FROM ETOH, ANXIETY RESTLESSNESS TREMULOUSNESS HR- 90. VALIUM 10 MG PO ADMINISTERED
[2022-04-05] MEDS ORDERED: Folic Acid PO (11:00)
[2022-04-05] MEDS ORDERED: ASPI-1169 PO (11:00)
[2022-04-05] MEDS ORDERED: Thiamine HCL PO (11:00)
--- NOTE | 2022-04-05 14:01 | NUR ---
RN NOTE- PT DC AT THIS TIME PER DR ROBISON. VS STABLE, AOX4, INTERACTIVE. STILL A BIT ANXIOUS BUT RX HELPED RELIEVE SX., NO SZ ACTIVITY NOTED. IV SITE DC'D, WRISTBAND REMOVED, AFTERCARE DISCUSSED AND VERBALIZED UNDERSTANDING. REFUSED BUS PASS, ESCORTED TO FRONT LOBBY BY THIS RN. PT LEFT OUT OF FRONT OF HOSPITAL.
== END 2022-04-05 15:33 | disposition home or self-care (01) | DRG 48 ==
LOC: ER 17:27 → TRANSITION 22:34 → TELE 04-03 11:29 → MED 04-05 10:08
PROVIDERS: ADMIT Nurse Practitioner Acute Care; ATTEND Internal Medicine
PROC: 05HB33Z Insertion of Infusion Device into Right Basilic Vein, Percutaneous Approach (ICD-10-PCS; principal; 2022-04-03)
DX: G64 Other disorders of peripheral nervous system (principal); G93.40 Encephalopathy, unspecified; F25.9 Schizoaffective disorder, unspecified; F29 Unspecified psychosis not due to a substance or known physiological condition; Z86.73 Personal history of transient ischemic attack (TIA), and cerebral infarction without residual deficits; Z20.822 Contact with and (suspected) exposure to COVID-19; I10 Essential (primary) hypertension; F31.9 Bipolar disorder, unspecified; F42.9 Obsessive-compulsive disorder, unspecified; Z88.8 Allergy status to other drugs, medicaments and biological substances; Z79.899 Other long term (current) drug therapy; Z59.00 Homelessness unspecified; E11.9 Type 2 diabetes mellitus without complications; F15.23 Other stimulant dependence with withdrawal; F10.139 Alcohol abuse with withdrawal, unspecified; Y90.5 Blood alcohol level of 100-119 mg/100 ml
CPT/HCPCS: 36415; 70450-TC; 70551-TC; 71045-TC; 72141-TC; 80048-TC; 80061-TC; 80076-TC; 81001; 82140-TC; 83735-TC; 84443-TC; 85025-TC; 85652-TC; 85730-TC; 87081-TC; 92526; 92611-TC; 97112-TC; 97116-TC; 97530-TC; C9803; G0378; G0480; J0360; J1650; J7030

== ENCOUNTER 2022-04-05 15:47 | Emergency (ER) | payer MEDICAID ==
[~2022-04-05] VITALS: Ht 177.8 cm; Wt 80.3 kg
[~2022-04-05 15:47] MED LIST changes: +ASPI-1169 PO; -CYCL5TAB PO; +Folic Acid PO; -METH4TAB17 PO; +Thiamine HCL PO
--- NOTE | 2022-04-05 15:59 | NUR ---
TO ER BED 14, [id number] FROM A FRONT OF [facility] FOR ETOH, WAS DC TODAY FROM [facility], CONNECTED TO MONITOR
[2022-04-05 18:13] VITALS: BP 118/59
== END 2022-04-05 20:19 | disposition home or self-care (01) ==
LOC: ER 15:50
DX: F10.129 Alcohol abuse with intoxication, unspecified (principal); I10 Essential (primary) hypertension; E11.9 Type 2 diabetes mellitus without complications; F17.200 Nicotine dependence, unspecified, uncomplicated; Z88.8 Allergy status to other drugs, medicaments and biological substances; Z60.2 Problems related to living alone; Z79.899 Other long term (current) drug therapy; Y90.9 Presence of alcohol in blood, level not specified

== ENCOUNTER 2023-01-19 14:24 | Emergency (ER) | payer MEDICAID ==
[~2023-01-19] VITALS: Ht 180.3 cm; Wt 77.1 kg
--- NOTE | 2023-01-19 14:41 | NUR ---
CALLED TO ROOM IN, NO ANSWER
--- NOTE | 2023-01-19 14:50 | NUR ---
CALLED AGAIN NO ANSWER,
[2023-01-19 14:53] VITALS: BP 121/81; TEMP 98.2; O2SAT 100
== END 2023-01-19 14:54 | disposition left against medical advice (07) ==
LOC: ER 14:36
DX: R22.1 Localized swelling, mass and lump, neck (principal); Z53.21 Procedure and treatment not carried out due to patient leaving prior to being seen by health care provider

== ENCOUNTER 2023-01-24 17:54 | Emergency (ER) | payer MEDICAID ==
[~2023-01-24] VITALS: Ht 177.8 cm; Wt 79.4 kg
[2023-01-24 18:01] VITALS: BP 132/72; TEMP 98.2; O2SAT 98
--- NOTE | 2023-01-24 18:07 | NUR ---
BIBS FOR BACK PAIN. A/O X 3, ABLE TO MAKE NEEDS KNOWN, TOLERATING WELL ON ROOM AIR. WILL CONTINUE TO MONITOR.
--- NOTE | 2023-01-24 19:47 | NUR ---
PT LEFT WITHOUT BEING SEEN. AMB WITH STEADY GAIT
== END 2023-01-24 19:49 | disposition left against medical advice (07) ==
LOC: ER 17:56
DX: M54.50 Low back pain, unspecified (principal); Z53.21 Procedure and treatment not carried out due to patient leaving prior to being seen by health care provider

== ENCOUNTER 2023-04-18 06:58 | Emergency (ER) | payer MEDICAID ==
[~2023-04-18] VITALS: Ht 172.7 cm; Wt 77.1 kg
[2023-04-18 07:07] VITALS: BP 122/82; TEMP 98.1; O2SAT 97
== END 2023-04-18 07:24 | disposition left against medical advice (07) ==
LOC: ER 06:59
DX: M79.644 Pain in right finger(s) (principal); I10 Essential (primary) hypertension; E11.9 Type 2 diabetes mellitus without complications; Z88.8 Allergy status to other drugs, medicaments and biological substances; Z60.2 Problems related to living alone

== ENCOUNTER 2023-05-08 09:46 | Emergency (ER) | payer MEDICAID ==
[~2023-05-08] VITALS: Ht 180.3 cm; Wt 80.7 kg
[2023-05-08 11:23] LABS: ALBUMIN 3.8 g/dL (3.4-5.0); BILIRUBIN,DIRECT 0.1 mg/dL (0.0-0.2); BILIRUBIN,TOTAL 0.4 mg/dL (0.2-1.0); CREATININE 0.8 mg/dL (0.6-1.3); TOTAL PROTEIN, SERUM 8.1 g/dL (6.4-8.2)
[2023-05-08] MEDS ORDERED: IOHEXOL-300 100 ML VIAL IV ONE (11:58)
[2023-05-08 12:57] LABS: BASOPHILS % (AUTO) 0.6 % (0.0-2.0); EOSINOPHILS # (AUTO) 0.2 K/uL (0.0-0.7); EOSINOPHILS % (AUTO) 3.9 % (0.0-6.0); HEMATOCRIT 40 % (39-51); HEMOGLOBIN 13.2 g/dL (13.5-17.5); LYMPHOCYTES # (AUTO) 1.3 K/uL (0.8-4.8); LYMPHOCYTES % (AUTO) 21.8 % (20.0-44.0); MEAN CORPUSCULAR HEMOGLOBIN 30 PG (26.0-33.0); MEAN CORPUSCULAR HGB CONC 33 g/dl (31.0-36.0); MEAN CORPUSCULAR VOLUME 90 fL (80-96); MONOCYTES # (AUTO) 0.7 K/uL (0.1-1.30); MONOCYTES % (AUTO) 11.6 % (2.0-12.0); NEUTROPHILS # (AUTO) 3.8 K/uL (1.8-8.9); NEUTROPHILS % (AUTO) 62.1 % (43.0-81.0); PLATELET COUNT (AUTO) 212 K/uL (150-450); RED BLOOD CELL COUNT(AUTO) 4.38 MIL/uL (4.5-6.0); WHITE BLOOD COUNT (AUTO) 6.1 K/uL (4.3-11.0)
[2023-05-08] MEDS ORDERED: METH-649 PO (16:19)
[2023-05-08 16:31] VITALS: BP 143/81; TEMP 98.3; O2SAT 97
== END 2023-05-08 16:32 | disposition home or self-care (01) ==
LOC: ER 09:52
DX: R22.1 Localized swelling, mass and lump, neck (principal); M54.9 Dorsalgia, unspecified; I10 Essential (primary) hypertension; E11.9 Type 2 diabetes mellitus without complications; F17.200 Nicotine dependence, unspecified, uncomplicated; Z98.890 Other specified postprocedural states; Z79.899 Other long term (current) drug therapy; Z79.82 Long term (current) use of aspirin; Z60.2 Problems related to living alone; Z88.1 Allergy status to other antibiotic agents
CPT/HCPCS: 99285; 72131; 71045; 70491; 85025; 80048; 80076; 36415; 84443; Q9967

== ENCOUNTER 2023-09-24 16:13 | Emergency (ER) | payer MEDICARE, OTHER ==
[~2023-09-24] VITALS: Ht 180.3 cm; Wt 81.6 kg
[~2023-09-24 16:13] MED LIST changes: +METH-649 PO
[2023-09-24] MEDS ORDERED: KETOROLAC TROMETHAMINE 15 MG/ML VIAL ONE (17:59)
[2023-09-24] MEDS: KETOROLAC TROMETHAMINE 15 MG/ML VIAL IM ONE (18:18)
[2023-09-24] MEDS ORDERED: ACETAMINOPHEN ES 500 MG TABLET ONE (18:34)
[2023-09-24] MEDS: ACETAMINOPHEN ES 500 MG TABLET PO ONE (18:42)
[2023-09-24 19:01] VITALS: BP 119/70; TEMP 98; O2SAT 99
== END 2023-09-24 19:02 | disposition home or self-care (01) ==
LOC: ER 16:13
DX: D17.22 Benign lipomatous neoplasm of skin and subcutaneous tissue of left arm (principal); I10 Essential (primary) hypertension; E11.9 Type 2 diabetes mellitus without complications; Z88.8 Allergy status to other drugs, medicaments and biological substances; Z60.2 Problems related to living alone; Z79.899 Other long term (current) drug therapy
CPT/HCPCS: 76882; J1885